=== PATIENT | male | born 1980 | race Two or more races ===

== ENCOUNTER 2022-02-21 11:42 | Outpatient (CLI) | payer OTHER | END 2022-02-21 11:56 | disposition home or self-care (01) | LOC: TOM 11:42 | PROVIDERS: ATTEND Specialist/Technologist, Other Nephrology | DX: N18.2 Chronic kidney disease, stage 2 (mild) (principal); N13.71 Vesicoureteral-reflux without reflux nephropathy; N20.0 Calculus of kidney ==

== ENCOUNTER 2022-03-11 09:38 | Day surgery (SDC) | payer OTHER ==
[~2022-03-11] VITALS: Ht 182.9 cm; Wt 103.0 kg
== END 2022-03-11 19:25 | disposition home or self-care (01) ==
LOC: CIR.AMB 09:38
PROVIDERS: ATTEND Urology
DX: N20.0 Calculus of kidney (principal); Z88.6 Allergy status to analgesic agent; Z20.822 Contact with and (suspected) exposure to COVID-19; R80.9 Proteinuria, unspecified

== ENCOUNTER 2022-05-27 09:10 | Day surgery (SDC) | payer OTHER ==
[~2022-05-27] VITALS: Ht 182.9 cm; Wt 99.8 kg
== END 2022-05-27 19:50 | disposition home or self-care (01) ==
LOC: CIR.AMB 09:10
PROVIDERS: ATTEND Urology
DX: N20.0 Calculus of kidney (principal); Z88.6 Allergy status to analgesic agent; Z20.822 Contact with and (suspected) exposure to COVID-19

== ENCOUNTER 2022-06-06 13:15 | Emergency (ER) | payer OTHER ==
[~2022-06-06] VITALS: Ht 182.9 cm; Wt 99.8 kg
== END 2022-06-06 15:59 | disposition home or self-care (01) ==
LOC: ER 13:15
DX: R33.8 Other retention of urine (principal); Z88.0 Allergy status to penicillin